=== PATIENT | female | born 1975 | race Caucasian/White ===

== ENCOUNTER 2019-04-12 08:35 | Emergency (ER) | payer BC, OTHER ==
[2019-04-12 08:53] VITALS: BMI 27.4
--- NOTE | 2019-04-12 10:28 | PDOC ---
History of Present Illness - General Chief Complaint: Chest Pain Stated Complaint: HYPERTENSION Time Seen by Provider: 04/12/19 09:48 History Source: Patient Exam Limitations: No Limitations - History of Present Illness Initial Comments: 04/12/19 10:06 43-year-old female presents the emergency room with complaints of episodic chest pressure which was approximately 2 minutes long which self resolved this morning. Patient also states felt mild dizziness with onset along with tingling left side her face. Patient states symptoms resolved with sudden come to the ER today secondary to history of hypertension and states that had an elevated blood pressure of 170/90 at home. Patient states took her lobetolol 100 mg Timing/Duration: resolved prior to arrival Severity: mild Associated Symptoms: reports: chest pain Past History - Travel Traveled outside of the country in the last 30 days: No Close contact w/someone who was outside of country & ill: No - Past Medical History Allergies/Adverse Reactions: Allergies Allergy/AdvReac Type Severity Reaction Status Date / Time No Known Allergies Allergy Verified 04/12/19 08:54 Home Medications: Ambulatory Orders Labetalol HCl 100 mg PO DAILY 04/12/19 - Suicide/Smoking/Psychosocial Hx Smoking History: Never smoked Have you smoked in the past 12 months: No Information on smoking cessation initiated: No Hx Alcohol Use: No Drug/Substance Use Hx: No Patient Lives Alone: No Lives with/in: spouse/SO Review of Systems - Review of Systems Able to Perform ROS?: Yes Constitutional: No: Symptoms Reported HEENTM: No: Symptoms Reported Respiratory: No: Symptoms reported Cardiac (ROS): Yes: Chest Pain, Lightheadedness : No: Symptoms Reported Musculoskeletal: No: Symptoms Reported Integumentary: No: Symptoms Reported Neurological: Yes: Tingling Endocrine: No: Symptoms Reported Hematologic/Lymphatic: No: Symptoms Reported *Physical Exam - Vital Signs Last Vital Signs Temp Pulse Resp BP Pulse Ox 98.1 F 65 18 155/95 99 04/12/19 08:50 04/12/19 08:50 04/12/19 08:50 04/12/19 08:50 04/12/19 08:50 - Physical Exam General Appearance: Yes: Nourished, Appropriately Dressed. No: Apparent Distress HEENT: positive: TMs Normal, Pharynx Normal. negative: Pale Conjunctivae Neck: positive: Normal Thyroid, Supple Respiratory/Chest: positive: Lungs Clear, Normal Breath Sounds. negative: Respiratory Distress, Accessory Muscle Use Cardiovascular: positive: Regular Rhythm, Regular Rate. negative: Murmur Gastrointestinal/Abdominal: positive: Soft. negative: Tenderness Musculoskeletal: negative: CVA Tenderness Extremity: positive: Normal Capillary Refill. negative: Pedal Edema Integumentary: positive: Normal Color, Warm, Moist Neurologic: positive: Motor Strength 5/5 (ambulatory) ED Treatment Course - LABORATORY CBC & Chemistry Diagram: 04/12/19 10:27 04/12/19 10:27 Medical Decision Making - Medical Decision Making 04/12/19 10:00 Chief complaint: Episodic midsternal chest tightness along with dizziness and tingling to the left side of her face that lasted approximately 2 minutes and resolved without intervention. Patient took her labetalol 100 mg this morning after she took her blood pressure which was noted to be 170/90. Exam: Vital signs stable. EKG sinus bradycardia at 55 no reproducible chest pain Plan: Urine, labs, and EKG 04/12/19 11:39 Laboratory Tests 04/12/19 04/12/19 04/12/19 10:27 10:27 10:27 WBC 7.4 Hgb 12.7 Hct 38.0 Neutrophils % 60.4 Sodium 136 Potassium 4.2 Chloride 103 Carbon Dioxide 28 Est GFR (CKD-EPI)AfAm 106.13 Est GFR (CKD-EPI)NonAf 91.57 Random Glucose 99 Calcium 9.2 Total Bilirubin 0.4 AST 10 L ALT 19 Alkaline Phosphatase 74 Creatine Kinase 107 Troponin I < 0.02 Urine Ketones Negative Urine Nitrite Negative Ur Leukocyte Esterase Negative Pt remains asymptomatic. pt recommended to f/u with PMD and discuss ED visit today. *DC/Admit/Observation/Transfer Diagnosis at time of Disposition: Chest pain - Discharge Dispostion Disposition: HOME Condition at time of disposition: Improved - Referrals - Patient Instructions Printed Discharge Instructions: DI for Atypical Chest Pain, DI for High Blood Pressure Additional Instructions: Please continue your medication. Please follow up with your doctor and discuss results from today's visit - Post Discharge Activity
[2019-04-12 10:56] LABS: BASO % 0.2 % (0-2.0); HEMOGLOBIN 12.7 GM/dL (10.7-15.3); LYMPH % 31.3 % (8-40); MCH 29.8 pg (25.7-33.7); MCHC 33.3 g/dl (32.0-36.0); MEAN CELL VOLUME 89.3 fl (80-96); MEAN PLT VOLUME 7.2 fl (7.5-11.1); MONO % 7.1 % (3.8-10.2); NEUT % 60.4 % (42.8-82.8); PLATELET COUNT 390 K/MM3 (134-434); RBC 4.25 M/mm3 (3.60-5.2); RDW 13.4 % (11.6-15.6); WHITE BLOOD COUNT 7.4 K/mm3 (4.0-10.0)
[2019-04-12 11:21] LABS: ALBUMIN 3.8 g/dl (3.4-5.0); ALK PHOS 74 U/L (45-117); ANION GAP 5 MMOL/L (8-16); BILIRUBIN,TOTAL 0.4 mg/dL (0.2-1); BLOOD UREA NITROGEN 10.5 mg/dL (7-18); CALCIUM 9.2 mg/dL (8.5-10.1); CHLORIDE 103 mmol/L (98-107); CO2 28 mmol/L (21-32); CREATININE 0.8 mg/dL (0.55-1.3); GLUCOSE,RANDOM 99 mg/dL (74-106); POTASSIUM 4.2 mmol/L (3.5-5.1); SGOT/AST 10 U/L (15-37); SGPT/ALT 19 U/L (13-61); SODIUM 136 mmol/L (136-145); TOT PROT 7.9 g/dl (6.4-8.2)
[2019-04-12 11:28] LABS: URINE APPEARANCE CLEAR; URINE BILIRUBIN NEGATIVE (NEGATIVE); URINE COLOR YELLOW; URINE GLUCOSE (UA) NEGATIVE (NEGATIVE); URINE KETONE NEGATIVE (NEGATIVE); URINE LEUK ESTERASE NEGATIVE (NEGATIVE); URINE NITRITE NEGATIVE (NEGATIVE); URINE PROTEIN NEGATIVE (NEGATIVE); URINE UROBILINOGEN 0.2 mg/dL (0.2-1.0)
[2019-04-12 11:42] VITALS: BP 130/83; PULSE 72; TEMP 98
--- NOTE | 2019-04-12 12:29 | EKG ---
Test Reason : Blood Pressure : / mmHG Vent. Rate : 055 BPM Atrial Rate : 055 BPM P-R Int : 146 ms QRS Dur : 092 ms QT Int : 404 ms P-R-T Axes : 057 022 012 degrees QTc Int : 386 ms SINUS BRADYCARDIA OTHERWISE NORMAL ECG NO PREVIOUS ECGS AVAILABLE Confirmed by GUEVARA VICK MD ([id number]) on 04/12/2019 12:29:23 PM Referred By: Confirmed By:GUEVARA VICK MD
== END 2019-04-12 11:54 | disposition home or self-care (01) ==
LOC: JER 08:35
DX: R07.9 Chest pain, unspecified (principal); I10 Essential (primary) hypertension
CPT/HCPCS: 36415; 80053; 81003; 82550; 84484; 85025; 93005; 93010; 99283-25

== ENCOUNTER 2019-04-17 12:31 | Emergency (ER) | payer BC, OTHER | END 2019-04-17 20:55 | disposition home or self-care (01) | LOC: JER 12:31 ==